=== PATIENT | female | born 1935 | race Caucasian/White ===

== ENCOUNTER 2024-01-16 11:46 | Emergency (ER) | payer MEDICARE, MEDICAID, SELFPAY ==
[2024-01-16 11:49] VITALS: BP 130/56; PULSE 92; RESP 19; TEMP 36.3; O2SAT 95
[2024-01-16 12:26] VITALS: PULSE 65; RESP 16; O2SAT 96; BMI 21.1
--- NOTE | 2024-01-16 12:28 | EKG_ITS ---
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
--- NOTE | 2024-01-16 12:30 | PD.EDAMS ---
Altered Mental Status RME/HPI General Chief Complaint: Altered Mental Status Stated Complaint: AMS Time Seen by Provider: 01/16/24 12:07 Arrival date/time: 01/16/24 11:46 Limitations: no limitations RME / HPI RME / HPI narrative: 88 year old female presents to the ED SLIME from [facility] for altered mental status today. Per medics, NH staff reported patient is confused at baseline, however noted to have increased confusion today. While in the ED patient is difficult to understand, no further history obtainable. Related Data Previous Rx's ?Medication ?Instructions ?Recorded nitrofurantoin 100 mg PO BID UTI 7 days #14 caps 01/16/24 monohydrate/macrocrystals 100 mg capsule (Macrobid) nitrofurantoin 100 mg PO Q12H 7 days #14 caps 01/16/24 monohydrate/macrocrystals 100 mg capsule (Macrobid) Review of Systems Review of Systems Narrative Review of Systems: ROS initially unobtainable, patients mandible was help in extreme extension and speech was difficult to understand. Past Medical History Social History SMOKING STATUS: Unknown if ever smoked ED Exam General Limitations: Present no limitations General appearance: Present alert Head Head exam: Present atraumatic and normocephalic Eye Eye exam: Present normal appearance, PERRL and EOMI ENT ENT exam: Present mucous membranes moist and other (Mandible held in extreme extension) Neck Neck exam: Present normal inspection, full ROM and trachea midline Chest Chest inspection: Present normal inspection and symmetric chest wall rise Respiratory Respiratory exam: Present normal lung sounds bilaterally Cardiovascular Cardiovascular exam: Present regular rate, normal rhythm and normal heart sounds Abdominal Exam Abdominal exam: Present soft and normal bowel sounds Extremities Exam Extremities exam: Present normal inspection and full ROM Back Exam Back exam: Present normal inspection and full ROM Neurological Exam Neurological exam: Present alert, oriented X3 and CN II-XII intact Psychiatric Psychiatric exam: Present normal affect and normal mood Skin Skin exam: Present warm, dry, intact and normal color Course Quality Measures none Orders Category Date Time Status Bedside Blood Glucose NOW Care 01/16/24 12:28 Completed Marketing Services Coordinator NOW Care 01/16/24 12:29 Completed Continuous Pulse Oximetry NOW Care 01/16/24 12:28 Completed EKG (ED ONLY) *Do not use* NOW Care 01/16/24 12:29 Completed Insert IV NOW Care 01/16/24 12:29 Completed Miscellaneous Nursing Order NOW Care 01/16/24 14:16 Completed Urinary Catheter NOW Care 01/16/24 12:[address] head/brain wo con Stat Exams 01/16/24 12:30 Completed EKG (ED Only) Stat Exams 01/16/24 12:28 Draft XR chest 1V portable Stat Exams 01/16/24 12:31 Completed XR mandible <4V Stat Exams 01/16/24 14:20 Completed Ammonia Stat Lab 01/16/24 12:50 Completed CBC Stat Lab 01/16/24 12:50 Completed Comprehensive Metabolic Panel Stat Lab 01/16/24 12:50 Completed Free T4 (Free Thyroxine) Stat Lab 01/16/24 12:50 Completed Magnesium Stat Lab 01/16/24 12:50 Completed Thyroid Stimulating Hormone Stat Lab 01/16/24 12:50 Completed Troponin I Stat Lab 01/16/24 12:50 Completed Troponin I Stat Lab 01/16/24 14:40 Completed Urinalysis Stat Lab 01/16/24 14:35 Completed Sodium Chloride 0.9% 1000 ml [Ns] 1,000 ml Med 01/16/24 14:23 Discontinued IV 999 mls/hr Vital Signs Vital signs: Vital Signs Temperature 97.4 F 01/16/24 11:49 Pulse Rate 92 01/16/24 11:49 Respiratory Rate 19 01/16/24 11:49 Blood Pressure 130/56 L 01/16/24 11:49 Pulse Oximetry (%) 95 01/16/24 11:49 Oxygen Delivery Method Nasal Cannula 01/16/24 11:49 Oxygen Flow Rate 6 01/16/24 11:49 Pulse ox is 95% on 6L nasal cannula which is adequate. Altered Mental Status MDM Narrative MDM Narrative:: Celestina Padilla am scribing for and in the presence of Dr. Moreno. Patient data External records reviewed:: EMS form and Snf records (I reviewed pmhx and medications from [place] txfer packet ) Clinical information provided by:: EMS Social determinants that could affect healthcare access:: housing ([place] ) Patient has the following chronic illnesses:: Dementia How is presenting disease/condition affected by chronic disease/condition?: exacerbated by Evaluation data The following diagnostics were reviewed and interpreted by me:: lab results, radiology exam(s) and EKG tracing(s) (NSR, rate 65, normal axis, no ectopy) Lab and/or radiology exams considered but not ordered:: None Interpretation Summary: Ordering Physician: Cosmo Moreno MD Date of Service: 01/16/24 Procedure(s): CT head/brain wo con Accession Number(s): [id number] cc: Balwinder Graham MD; Cosmo Moreno MD~ Examination: CT brain head without contrast. 2-D sagittal coronal reconstructions Date and time of exam:January 16, 2024 1310 hrs. Indications: Onset altered mental status today CTDI: vol (mGy):43.7 DLP: (mGycm):863 Technique: Multiple CT axial sections of the brain have been obtained, 5 mm slice thickness. Contrast has not been administered. 2-D sagittal, coronal reconstructions have been obtained Low dose protocols were performed. One or more of the following dose reduction techniques were used; automated exposure control, adjustment of the mA and/or KV according to patient size, use of iterative reconstruction technique. Findings: No significant ventricular enlargement. Intra-axial or extra-axial hemorrhage density is not seen. No mass effect or midline shift Basal cisterns are not remarkable. Fourth ventricle is midline. Cranial vault intact. Impression: Negative for acute hemorrhage, mass effect or midline shift Advise clinical correlation and follow-up accordingly Dictated By: Balwinder Graham MD Signed By: <Electronically signed by Balwinder Graham MD in OV> 01/16/24 1339 Ordering Physician: Cosmo Moreno MD Date of Service: 01/16/24 Procedure(s): XR chest 1V portable Accession Number(s): [id number] cc: Balwinder Graham MD; Cosmo Moreno MD~ Examination: AP chest single view Technique: AP portable semiupright chest single view Exam date and time: January 26, 2024 1238 hrs. Indications: Altered mental status today. Findings: Normal heart size No aspiration pneumonia The osseous structures are demineralized Impression: No aspiration pneumonia Dictated By: Balwinder Graham MD Signed By: <Electronically signed by Balwinder Graham MD in OV> 01/16/24 1352 Ordering Physician: Cosmo Moreno MD Date of Service: 01/16/24 Procedure(s): XR mandible <4V Accession Number(s): [id number] cc: Balwinder Graham MD; Cosmo Moreno MD~ Examination: Mandible series 4 views Exam date and time: January 16, 2024 1455 hrs. Technique: Melvin Henry sagittal oblique right and left mandible examination, drop pain today Findings: Suspicious for dislocation of the mandibular condyles The sagittal oblique films are not optimal No mandibular fracture depicted Impression: Recommend CT maxillofacial study follow-up to exclude dislocation of the mandibular condyles Dictated By: Balwinder Graham MD Signed By: <Electronically signed by Balwinder Graham MD in OV> 01/16/24 1552 Medications / Prescriptions Medications or Prescriptions considered but not ordered:: None Medication administrations:: Medication Administration History Discontinued Medications Sodium Chloride (Ns) 1,000 mls @ 999 mls/hr IV .Q1H1M ONE Stop: 01/16/24 15:23 Last Infusion: 01/16/24 16:46 Dose: Infused Documented By: Admin: 01/16/24 15:43 Dose: 999 mls/hr Documented By: See above Consultations Consultation(s) initiated? (list below): No Diagnosis Most likely diagnosis given after review of the tests above:: Closed reduction of mandible UTI Admission Indicated Admission indicated?: not indicated Admission Request Was there a request for admission?: No Disposition Plan Disposition Plan: Discharge Discharge Attestation Discharge Attestation: The patient and all family members were given an opportunity to ask questions and understood the discharge instructions. Discharge instructions specifically effects, indications for sooner follow up or return to the emergency department, and the expected course of current diagnosis. Patient condition: Stable Discharge Plan Plan Patient Disposition: HOME (Self Care) Prescriptions/Referrals Prescriptions/Med Rec: New nitrofurantoin monohyd/m-cryst [Macrobid] 100 mg capsule 100 mg PO BID 7 Days Qty: 14 0RF Rx Instructions: must administer with a meal/food nitrofurantoin monohyd/m-cryst [Macrobid] 100 mg capsule 100 mg PO Q12H 7 Days Qty: 14 0RF Rx Instructions: must administer with a meal/food Problem List Clinical Impression: Closed dislocation of mandible, Urinary tract infection Patient/Caregiver Discharge Instructions Education Materials: ED Jaw Dislocation Additional Instructions: Return to the emergency department for any worsening or any further medical problems Please follow-up with your primary care doctor within the next several days Today you had a mandibular dislocation. That means your jawbone was dislocated. We reduced that and now it is in its normal position. If you experience any other problems please return to the ER Print Language: Romanian Stand Alone Forms: Christiane Award Info., Patient Portal Info Letter
[2024-01-16 13:09] LABS: Basophils % (Auto) 0 % (0-2.5); Eosinophils % (Auto) 0 % (0-10); Hemoglobin 11.6 g/dL (12.0-16.0); Immature Granulocytes % (Auto) 0 % (0-0); Immature Granulocytes Auto 0.04 Thou/mm3 (0.00-0.00); Lymphocytes % (Auto) 10 % (10-50); Mean Corpuscular HGB Conc 34.1 g/dl (31.0-37.0); Mean Corpuscular Hemoglobin 31.4 pg (25.0-35.0); Mean Corpuscular Volume 92 fL (80-100); Monocytes # (Auto) 0.7 Thou/mm3 (0.0-0.8); Monocytes % (Auto) 7 % (0-12); Neutrophils # (Auto) 8.1 Thou/mm3 (1.8-7.7); Neutrophils % (Auto) 82 % (37-80); Nucleated Red Blood Cell % 0 /100 WBC (0); Platelet Count 299 Thou/mm3 (140-440); RDW Standard Deviation 41.6 fL (36.4-46.3); White Blood Count 9.9 Thou/mm3 (3.6-11.0)
[2024-01-16 13:19] LABS: Ammonia < 10 uMol/L (11-32)
[2024-01-16 13:29] LABS: Alanine Aminotransferase 9 U/L (10-49); Albumin, Serum 4.2 gm/dL (3.4-4.8); Albumin/Globulin Ratio 1.6 (1.2-2.2); Alkaline Phosphatase 109 U/L (46-116); Anion Gap 7 (7-16); Aspartate Amino Transferase 13 U/L (0-34); BUN/Creatinine Ratio 31 Ratio (12-20); Bilirubin,Total 0.5 mg/dL (0.3-1.2); Blood Urea Nitrogen 25 mg/dL (9-23); Calcium 9.5 mg/dL (8.3-10.6); Calcium (Corrected) 9.5 mg/dL (8.5-10.1); Carbon Dioxide 27.8 mMol/L (20.0-31.0); Chloride 96 mMol/L (98-107); Creatinine (Component) 0.8 mg/dL (0.6-1.3); Estimated Creatinine Clearance 43.6 mL/min (>60); Free T4 (Free Thyroxine) 1.25 ng/dL (0.89-1.76); Globulin 2.6 gm/dL (2.3-3.5); Glucose 84 mg/dL (74-106); Magnesium 2.1 mg/dL (1.6-2.6); Osmolality,Calculated 266 (275-295); Potassium 4.2 mMol/L (3.4-5.1); Sodium 131 mMol/L (136-145); Thyroid Stimulating Hormone 3.88 uIU/mL (0.55-4.78); Total Protein 6.8 gm/dL (5.7-8.2); Troponin I < 0.020 ng/mL (0.0-0.045); eGFR > 60 See Note
--- NOTE | 2024-01-16 14:20 | XR_ITS ---
Examination: Mandible series 4 views Exam date and time: January 16, 2024 1455 hrs. Technique: Melvin Henry sagittal oblique right and left mandible examination, drop pain today Findings: Suspicious for dislocation of the mandibular condyles The sagittal oblique films are not optimal No mandibular fracture depicted Impression: Recommend CT maxillofacial study follow-up to exclude dislocation of the mandibular condyles
[2024-01-16 14:41] LABS: Collection Type, Urine Catheter
[2024-01-16 14:42] VITALS: BP 146/60; PULSE 72; RESP 20; TEMP 36.7; O2SAT 99
[2024-01-16 15:17] LABS: Troponin I < 0.020 ng/mL (0.0-0.045)
[2024-01-16 15:30] LABS: Bilirubin,Urine Negative (Negative); Blood,Urine Negative (Negative); Clarity,Urine Clear (Clear/Hazy); Color,Urine Yellow (Lt Yel-Yel); Glucose, Urine Negative (Negative); Ketones,Urine Negative (Negative); Leukocyte Esterase,Urine Positive (Negative); Nitrite,Urine Negative (Negative); Protein,Urine Trace (Neg - Trace); RBC,Urine 1 /hpf (0-3); Specific Gravity,Urine 1.016 (1.001-1.035); Squamous Epithelial Cell,Urine < 1 /hpf (0-5); Urobilinogen,Urine Negative mg/dL (0.0-1.0); WBC,Urine 54 /hpf (0-5)
[2024-01-16] MEDS: SODIUM CHLORIDE 0.9% 1000 ML 1,000 ML 999 ML IV (15:43)
[2024-01-16 16:38] VITALS: BP 158/64; PULSE 74; RESP 15; TEMP 36.5; O2SAT 100
--- NOTE | 2024-01-16 18:17 | PC.CC ---
ED Remote Sensing Technician contacted [facility] in order to begin transportation request, provided transport #[id number]. PCS form and facesheet faxed to [facility]. [facility] dispatch contacted and trip was created. [facility] waiting for [facility] confirmation and will contact fha underwriter with ETA.
[2024-01-16 18:42] VITALS: BP 142/70; PULSE 70; RESP 20; TEMP 36.9; O2SAT 100
[2024-01-16 22:26] VITALS: BP 138/77; PULSE 78; RESP 16; TEMP 36.8; O2SAT 100
== END 2024-01-16 22:32 | disposition home or self-care (01) ==
PROVIDERS: Emergency Medicine; Emergency Provider Emergency Medicine; PCP Hospitalist
DX: N39.0 Urinary tract infection, site not specified (principal); S03.00XA Dislocation of jaw, unspecified side, initial encounter; X58.XXXA Exposure to other specified factors, initial encounter
CPT/HCPCS: 36415; 70100; 70450; 71045; 80053; 81001; 82140; 83735; 84439; 84443; 84484; 85025; 93005; 96360; 99284; J7030

== ENCOUNTER 2024-04-20 11:36 | Emergency (ER) | payer MEDICAID, SELFPAY ==
[2024-04-20] VITALS (8 sets, daily range): BP systolic 142–180; BP diastolic 59–94; PULSE 61–90; RESP 12–18; TEMP 36.3–37.1; O2SAT 97–100; BMI 20.3
--- NOTE | 2024-04-20 12:05 | XR_ITS ---
Examination: Mandible series 4 views Technique: AP, Charles, right and left sagittal oblique mandible series 4 views Exam date and time: April 20, 2024 at 1249 hrs. Indications: Jaundice today Findings: Mandibular condyle dislocation No fracture Impression: Recommend CT maxillofacial study follow-up to confirm bilateral mandibular condyle dislocation
--- NOTE | 2024-04-20 12:08 | PD.EDADULT ---
ED General RME/HPI General Chief complaint: General Adult/Misc Complain Stated complaint: LOCKJAW Time Seen by Provider: 04/20/24 11:49 Arrival date/time: 04/20/24 11:36 This is an 88-year-old female that is brought in by ambulance with complaints of locked jaw. Per EMS this has happened before in the past. Patient comes from [facility]. Patient has a history of dementia, GERD, anxiety, depression. No other complaints. Patient not able to close her mouth all the way. Related Data Allergies Allergy/AdvReac Type Severity Reaction Status Date / Time No Known Allergies Allergy Verified 04/20/24 15:18 Review of Systems Review of Systems Systems Reviewed: All systems reviewed, normal except as documented Past Medical History Social History SMOKING STATUS: Unknown if ever smoked ED Exam General General appearance: Present alert and in no apparent distress Head Head exam: Present atraumatic Eye Eye exam: Present normal appearance, PERRL and EOMI ENT ENT exam: Present mucous membranes moist and other (not able to close mouth, jaw dislocation both sides ) Neck Neck exam: Present normal inspection, full ROM and trachea midline Chest Chest inspection: Present normal inspection and symmetric chest wall rise Respiratory Respiratory exam: Present normal lung sounds bilaterally Cardiovascular Cardiovascular exam: Present regular rate, normal rhythm and normal heart sounds Abdominal Exam Abdominal exam: Present soft Extremities Exam Extremities exam: Present normal inspection and full ROM Back Exam Back exam: Present normal inspection and full ROM Neurological Exam Neurological exam: Present alert and other (Awake cooperative) Psychiatric Psychiatric exam: Present normal affect and normal mood Skin Skin exam: Present warm, dry and intact Course Quality Measures none Orders Category Date Time Status Physical Medicine Specialist Q4H START 00 Care 04/20/24 15:22 Completed Continuous Pulse Oximetry NOW Care 04/20/24 15:22 Completed Insert IV STAT Care 04/20/24 15:21 Completed XR mandible min 4V Stat Exams 04/20/24 12:05 Completed XR mandible min 4V Stat Exams 04/20/24 16:26 Completed Midazolam Inj [Versed Inj] Med 04/20/24 15:21 Discontinued 1 mg IV X1 ONE fentaNYL INJ [Sublimaze Inj] Med 04/20/24 16:04 Discontinued 25 mcg IVP X1 ONE Vital Signs Vital signs: Vital Signs Temperature 97.9 F 04/20/24 13:08 Pulse Rate 69 04/20/24 13:08 Respiratory Rate 16 04/20/24 13:08 Blood Pressure 156/63 H 04/20/24 13:08 Pulse Oximetry (%) 99 04/20/24 13:08 Oxygen Delivery Method Room Air 04/20/24 13:08 Procedures -ED Jaw Reduction Time Out Performed: Yes Pre-Treatment Medications Used: other (Versed 1 mg) Technique used: downward anterior traction Reduction successful: Yes Patient Tolerated Procedure: well and no complications Complications: none MDM Patient data External records reviewed:: [facility] previous records Clinical information provided by:: patient Social determinants that could affect healthcare access:: none Patient has the following chronic illnesses:: see hpi How is presenting disease/condition affected by chronic disease/condition?: uneffected by Evaluation data The following diagnostics were reviewed and interpreted by me:: radiology exam(s) Lab and/or radiology exams considered but not ordered:: none Interpretation Summary: see note Medications Medications considered but not ordered:: none Medication administrations:: Medication Administration History Discontinued Medications Fentanyl Citrate (Fentanyl Cit Inj 50 Mcg/Ml Amp 2ml) 25 mcg IVP X1 ONE Stop: 04/20/24 16:05 Last Admin: 04/20/24 16:30 Dose: Not Given Documented By: YUMIKO Non-Admin Reason: Discontinued Midazolam HCl (Midazolam Inj 1 Mg/Ml Vial 2 Ml) 1 mg IV X1 ONE Stop: 04/20/24 15:22 Last Admin: 04/20/24 16:00 Dose: 1 mg Documented By: TAURUS Comments: via 20 g left ac over 2 min. patient was not given fentanyl because it was not needed Consultations Consultation(s) initiated? (list below): No Diagnosis Differential Diagnosis ED Complaint MDM: Jaw dislocation, jaw breakage, TMJ Most likely diagnosis given after review of the tests above:: jaw dislocation status post reduction. Admission Indicated Admission indicated?: not indicated Explain why admission is indicated or not indicated:: Job reduced and patient is job back to baseline. Patient able to open and close mouth. Admission Request Was there a request for admission?: No Disposition Plan Disposition Plan: Discharge Discharge Attestation Discharge Attestation: The patient and all family members were given an opportunity to ask questions and understood the discharge instructions. Discharge instructions specifically effects, indications for sooner follow up or return to the emergency department, and the expected course of current diagnosis. Patient condition: Stable Medical Decision Making MDM Narrative MDM Narrative: INitial mandible film: Findings: Mandibular condyle dislocation No fracture Impression: Recommend CT maxillofacial study follow-up to confirm bilateral mandibular condyle dislocation amelia call [phone], pt son. I let him know patient was in the emergency room and jaw dislocated. I asked permission for possble conscious sedation if needed. I told him that we would first try Versed IV to see if that will relax her enough to be able to reduce jaw. Patient given 1 mg of Versed. Patient was still awake and cooperative. We were able to successfully reduce jaw. Postprocedure x-ray done and it appears to be in place. Will send patient back to correction. Instructions to come back to the emergency room if symptoms change or worsen. s/p reduction mandible film: Findings: Successful reduction shoulder dislocation No fracture Impression: Successful reduction jaw dislocation Will send patient back to correction. Patient awake and alert and tolerated procedure well. Patient is to follow up with primary provider in 1-2 days Differential Diagnosis Differential Diagnosis: Jaw dislocation, jaw breakage, TMJ Discharge Plan Plan Patient Disposition: Xfer Skilled Nsg Fac (SNF) Patient condition on transfer: Stable Prescriptions/Referrals Referrals: Sandrita Gabriel ENGLISH PROFESSOR [Primary Care Provider] - In 1 week Problem List Clinical Impression: Dislocation, jaw Patient/Caregiver Discharge Instructions Discharge Activity: resume usual activities Education Materials: ED Jaw Dislocation Additional Instructions: Follow up with primary provider in 1-2 days. Come back to ED if symptoms change or worsen Print Language: Portuguese Stand Alone Forms: Christiane Award Info., Patient Portal Info Letter PA/MEDICAL CLINIC MANAGER Supervising Physician PA/THANH Supervising Physician: irene
--- NOTE | 2024-04-20 15:16 | PC.NURSE ---
SPOKE TO KIET COLLINS FROM [facility] AND GAVE UPDATE REGARDING PT'S POC. KIET OCLLINS GAVE THE # [phone] FOR ANY FURTHER UPDATES REGARDING PT'S POC.
[2024-04-20] MEDS: MIDAZOLAM INJ 1 MG/ML VIAL 2 ML IV (16:00)
--- NOTE | 2024-04-20 16:05 | PC.NURSE ---
patient's brief changed, linen and brief soiled of urine, clean dry brief applied and linen changed, patient placed in POC, call light within reach.
--- NOTE | 2024-04-20 16:10 | PC.NURSE ---
KESHAV Bryson NP AND DR. DISLA AT BEDSIDE MANUALLY REDUCING PT'S MANDIBLE WITHOUT CONSCIOUS SEDATION. PT RECEIVED VERSED PRIOR TO REDUCTION.
--- NOTE | 2024-04-20 16:26 | XR_ITS ---
Examination: Mandible 5 views Technique: Carl Charles, lateral, bilateral sagittal oblique total 5 views Exam date and time: 025 at 1645 hrs. Indications: Jaw dislocation post reduction Findings: Successful reduction shoulder dislocation No fracture Impression: Successful reduction jaw dislocation
--- NOTE | 2024-04-20 18:56 | PC.NURSE ---
spoke to Ayesha COLLINS from [facility] for SBAR report and made aware that pt is ready for discharged; transportation back to [facility] to be done by [facility] ED staff.
--- NOTE | 2024-04-20 19:03 | PC.NURSE ---
spoke to Christiano Kike, pt's son, and asked in able to picking supervisor pt to be transported back to [facility]. Per Christiano, will be able to picking supervisor my mom in about 15 minutes.
== END 2024-04-20 20:39 | disposition skilled nursing facility (03) ==
PROVIDERS: Emergency Provider Emergency Medicine; PCP Nurse Practitioner Gerontology
DX: S03.03XA Dislocation of jaw, bilateral, initial encounter (principal); X58.XXXA Exposure to other specified factors, initial encounter
CPT/HCPCS: 21480; 70110; 99284; J2250

== ENCOUNTER 2024-06-20 20:43 | Emergency (ER) | payer MEDICAID, SELFPAY ==
--- NOTE | 2024-06-20 20:53 | PD.EDFALL ---
ED Fall Injury RME/HPI General Chief Complaint: Fall Stated Complaint: FALL Time Seen by Provider: 06/20/24 21:09 Arrival date/time: 06/20/24 20:43 RME / HPI RME / HPI Narrative: This section includes all my notes and documentations, including HPI, PE, and ED course. Noah Lawson MD HPI: 88 y/o female with Hx of Dementia, muscle wasting and atrophy SLIME from [facility] presents to ED c/o falling and landing on her forehead x approximately 1 hour ago. Health And Safety Manager was attempting to help patient back into bed from the restroom when patient fell forward. Per EMS, patient given Ativan SCREEN REPAIRER CRUSHER. No other complaints. ROS: All negative except as documented in HPI. Physical Exam: General: Alert and oriented. Eyes: Conjunctivae and lids clear. ENT: No nasal congestion. Neck: Supple. Lungs: No respiratory distress. Skin: Warm and dry. Neuro: Alert and oriented X 3. Physical Exam: General: Alert and oriented. No acute distress when remaining still. Eyes: Conjunctivae and lids clear. ENT: No nasal congestion. Neck: Supple. Heart: RRR. Lungs: No respiratory distress. Good air movement. No rhonchi, wheezing, rales. Abdomen: Soft and nontender. Normal bowel sounds. No distension. No rebound or guarding. Back: No CVA tenderness. Skin: Warm and dry. Neuro: Alert and oriented X 3. Physical Exam: General: Alert and oriented. No acute distress. Eyes: Conjunctivae and lids clear. EOMI. PERRL. ENT: No nasal congestion. Pharynx normal. Tympanic membrane normal bilaterally. Neck: Supple. No lymphadenopathy. No JVD. Heart: RRR. Lungs: No respiratory distress. Good air movement. No rhonchi, wheezing, rales. Chest: No tenderness. Abdomen: Soft and nontender. Normal bowel sounds. No distension. No rebound or guarding. Back: No CVA tenderness. Legs: No clubbing, cyanosis, edema. Skin: Warm and dry. Neuro: Alert and oriented X 3. Cranial Nerves II-XII grossly intact. No peripheral motor deficits. Musculoskeletal: All major joints and bones are not tender with no limited ROM. I reviewed EMS and half-way notes. I reviewed all diagnostic test results. My review of the C-spine CT w/o contrast report is My review of the Head/Brain CT w/o contrast report is At this point, diagnoses include Treatment here included Lidocaine and suture repair. Significant improvement Not yet done: I discussed the case with our hospitalist. About the presentation and exam and diagnostics and treatments here. And need of further care in the hospital. Will accept the patient. Not yet done: Based on my best medical judgment, made decision no further evaluation or treatment indicated at this time. Patient understands and agrees to the discharge instructions customized and printed, see below. Noah Lawson MD Related Data Allergies Allergy/AdvReac Type Severity Reaction Status Date / Time No Known Allergies Allergy Verified 04/20/24 15:18 Review of Systems Review of Systems ROS Unobtainable: unobtainable due to medical condition (Dementia) Past Medical History Past Medical History NEUROLOGIC: Positive Dementia GASTROINTESTINAL: Positive Gastroesophageal Reflux Disease MUSCULOSKELETAL: Positive Musculoskeletal Disorders (MUSCLE WASTING AND ATROPHY) and Arthritis HEMATOLOGIC: Positive Anemia PSYCHO/SOCIAL: Positive Anxiety Surgical History SURGICAL: Positive Joint Replacement ED Exam Narrative Physical exam: Refer to HPI above Course Quality Measures none Orders Category Date Time Status Set Up Suture Tray STAT Care 06/20/24 21:[address] cervical spine wo con Stat Exams 06/20/24 21:[address] head/brain wo con Stat Exams 06/20/24 21:10 Ordered Lidocaine 1% 20 ml [Xylocaine 1% 20 ML] Med 06/20/24 21:10 Discontinued 20 ml INFL X1 ONE Vital Signs Vital signs: Vital Signs Temperature 98.0 F 06/20/24 21:10 Pulse Rate 76 06/20/24 21:10 Respiratory Rate 18 06/20/24 21:10 Blood Pressure 119/65 06/20/24 21:10 Pulse Oximetry (%) 100 06/20/24 21:10 Oxygen Delivery Method Room Air 06/20/24 21:10 Fall MDM Narrative MDM Narrative:: Scribe Attestation: Randy, Cait Harmon, am scribing for and in the presence of Dr. Lawson. Provider Notation: Although this document has been carefully reviewed, there may still be some phonetic and other typographical errors.? These errors are purely grammatical due to imperfections in the software program and should not be construed in any way to? compromise the substance of the patient's medical care during this visit. 88 y/o female with Hx of Dementia, muscle wasting and atrophy SLIME from [facility] presents to ED c/o falling and landing on her forehead x approximately 1 hour ago. Patient data External records reviewed:: [facility] previous records (Reviewed prior Ed records from 04/20/24. Patient was last seen for Dislocation, jaw.), EMS form and [facility] records Clinical information provided by:: EMS Social determinants that could affect healthcare access:: mental health (Dementia) Patient has the following chronic illnesses:: Dementia, Gastroesophageal Reflux Disease, Muscle wasing and atrophy, Arthritis, Anemia, Anxiety. How is presenting disease/condition affected by chronic disease/condition?: exacerbated by Evaluation data The following diagnostics were reviewed and interpreted by me:: radiology exam(s) Lab and/or radiology exams considered but not ordered:: None Interpretation Summary: I reviewed all diagnostic test results. My review of the C-spine CT w/o contrast report is My review of the Head/Brain CT w/o contrast report is Medications / Prescriptions Medications or Prescriptions considered but not ordered:: None Medication administrations:: Medication Administration History Discontinued Medications Lidocaine HCl (Lidocaine Hcl 1% 20 Ml Vial) 20 ml INFL X1 ONE Stop: 06/20/24 21:11 Lidocaine Diagnosis Fall Differential Diagnosis: syncope, concussion without loss of consciousness and other (Laceration, Contusion, Abrasion.) Discharge Plan Prescriptions/Referrals Referrals: No Primary/Family,Physician [Primary Care Provider] - In 1 week Patient/Caregiver Discharge Instructions Print Language: Swedish
[2024-06-20 21:10] VITALS: BP 119/65; PULSE 76; RESP 18; TEMP 36.7; O2SAT 100
--- NOTE | 2024-06-20 21:10 | XR_ITS ---
Examination: CT brain head without contrast. 2-D sagittal coronal reconstructions Date and time of exam:June 20, 2024 1048 hours INDICATIONS: Ground-level fall with injury to the head today, head pain CTDI: vol (mGy):46.8 DLP: (mGycm):1 Technique: Multiple CT axial sections of the brain have been obtained, 5 mm slice thickness. Contrast has not been administered. 2-D sagittal, coronal reconstructions have been obtained Low dose protocols were performed. One or more of the following dose reduction techniques were used; automated exposure control, adjustment of the mA and/or KV according to patient size, use of iterative reconstruction technique. Findings: No significant ventricular enlargement. Intra-axial or extra-axial hemorrhage density is not seen. No mass effect or midline shift Basal cisterns are not remarkable. Fourth ventricle is midline. Cranial vault intact. Numerous 1 mm opacities in the frontal scalp soft tissue, for instance axial image 26, clinical correlation advised Impression: Negative for acute hemorrhage, mass effect or midline shift
--- NOTE | 2024-06-20 21:10 | XR_ITS ---
Examination: CT cervical spine without contrast 2-D sagittal reconstructions 2-D coronal reconstructions 3-D reconstructions. Exam date and time:June 20, 2024 1048 hours INDICATIONS: Ground-level fall today with injury the neck, neck pain CTDI:vol (mGy) 6.90 DLP: (mGycm) 136 Technique: Multiple 2 mm axial sections of the cervical spine have been obtained. The coronal and sagittal reconstructions have been obtained. 3-D reconstructions have been obtained. Low dose protocols were performed. One or more of the following dose reduction techniques were used; automated exposure control, adjustment of the mA and/or KV according to patient size, use of iterative reconstruction technique. Findings: Axial sections demonstrate intact base of the skull. C1 exhibit satisfactory relationship to the odontoid. No acute cervical vertebral body fracture seen. Alignment posterior spinous processes satisfactory. Impression: No acute cervical fracture.
--- NOTE | 2024-06-20 21:11 | PD.EDADULT ---
ED General RME/HPI General Chief complaint: Fall Stated complaint: FALL Time Seen by Provider: 06/20/24 21:09 Arrival date/time: 06/20/24 20:43 CC: Ground-level fall with forehead laceration HPI patient presents to the ER via EMS after patient being was escorted to bed at [facility] care facility. Apparently in spite of being assisted and prior to falling the patient was given lorazepam for her sleeping dose. Patient promptly fell. GCS of 14 as a baseline. Patient is now somewhat drowsy. Reports stable vital signs and route. Patient asleep but easily arousable. Patient reports no pain. Related Data Allergies Allergy/AdvReac Type Severity Reaction Status Date / Time No Known Allergies Allergy Verified 04/20/24 15:18 Review of Systems Review of Systems Narrative Review of Systems: GEN: No fever, no chills, no weight loss EYES: No discharge, no visual changes, no pain HEENT: No ear pain, no congestion, no sore throat PULM: No shortness of breath, no cough, no congestion CV: No chest pain, no dyspnea on exertion, no palpitations GI: No nausea, no vomiting, no diarrhea, no pain, no constipation : No frequency, no urgency, no dysuria MUSC/SKEL: No joint pain, no back pain SKIN: No rash PSYCH: No hallucinations, no depression HEME/LYMPH: No easy bleeding or bruising tendencies NEURO: No weakness, + headache Past Medical History Past Medical History NEUROLOGIC: Positive Dementia CARDIAC: Negative Congestive Heart Failure RESPIRATORY: Negative Chronic Obstructive Pulmonary Disease (COPD) GASTROINTESTINAL: Positive Gastroesophageal Reflux Disease GENITOURINARY: Negative Renal Disease MUSCULOSKELETAL: Positive Musculoskeletal Disorders (MUSCLE WASTING AND ATROPHY) and Arthritis ENDOCRINE: Negative Diabetes Mellitus Type 1 or Diabetes Mellitus Type 2 HEMATOLOGIC: Positive Anemia PSYCHO/SOCIAL: Positive Anxiety Surgical History SURGICAL: Positive Joint Replacement Social History SMOKING STATUS: Unknown if ever smoked ED Exam Narrative Physical exam: [General: Frail, deconditioned but not in any acute distress Head; chevron shaped laceration full-thickness to the center forehead below the hairline. No step-off hematoma depression or other abrasion HEENT: Eyes: Pupils are PERRLA EOMs are intact. Mouth pink dry membranes uvula is midline swallow symmetrical nose no rhinorrhea or epistaxis. All the subsystems of HEENT are within acceptable limits Neck is supple nontender Chest equal chest rise nontender to palpation Respiratory: Clear to auscultation no wheezes crackles or rubs CV: Rate rhythm is regular no murmurs rubs or clicks Abdomen is flat soft nontender no masses positive bowel sounds all 4 quadrants Back: No CVA tenderness no spinous process tenderness from cervical spine thoracic and lumbar spine Skin: Chevron laceration full-thickness to center forehead below the hairline. See procedure note. Otherwise skin is intact no petechiae rash induration ulceration or crepitus Extremities: Moving all extremity against resistance cap refill less than 2 seconds neurosensory intact Neuro: Awake alert oriented x1, self, Glascow coma 15 no focal deficits] Course Quality Measures none Orders Category Date Time Status Set Up Suture Tray STAT Care 06/20/24 21:[address] cervical spine wo con Stat Exams 06/20/24 21:[address] head/brain wo con Stat Exams 06/20/24 21:10 Completed Lidocaine 1% 20 ml [Xylocaine 1% 20 ML] Med 06/20/24 21:10 Discontinued 20 ml INFL X1 ONE Vital Signs Vital signs: Vital Signs Temperature 98.0 F 06/20/24 21:10 Pulse Rate 76 06/20/24 21:10 Respiratory Rate 18 06/20/24 21:10 Blood Pressure 119/65 06/20/24 21:10 Pulse Oximetry (%) 100 06/20/24 21:10 Oxygen Delivery Method Room Air 06/20/24 21:10 Procedures -ED Procedure Comment Laceration repair, lidocaine, 1% 3 mL injected to local site. Site was cleaned and probed no foreign body was found site was interrupted with 3 interrupted sutures of 4-0 Ethilon with good approximation without complication patient tolerated the procedure well. Discharge Plan Plan Patient Disposition: HOME (Self Care) Patient condition on transfer: Stable Prescriptions/Referrals Referrals: No Primary/Family,Physician [Primary Care Provider] - In 1 week Problem List Clinical Impression: Fall from ground level, Forehead laceration Patient/Caregiver Discharge Instructions Education Materials: ED Fall with Uncertain Cause, ED Laceration, Face: Stitches or Tape Additional Instructions: Discharge instructions from Dr. Lawson:? -- Your laceration was repaired with 3 stitches. -- Keep the current dressing intact for 24 hours. -- After 24 hours, change the dressing once daily. -- First remove the dressing gently.? If it does not come off easily, run water through it until it comes off easily. -- Then gently wash with soap and water. -- After completely drying, apply antibiotic ointment and new dressing. -- See your doctor or return here in 7 days for suture removal.? Total of 3 stitches. -- Seek immediate medical care with fever, spreading redness from the wound, or with any concerns. Print Language: Croatian Stand Alone Forms: Christiane Award Info., Patient Portal Info Letter PA/PHOTOENGRAVING PROOFER Supervising Physician PA/PHOTOENGRAVING PROOFER Supervising Physician: Marvel Odom ENP, MD Attestation MD Attestation Discharge instructions from Dr. Lawson:? -- Your laceration was repaired with 3 stitches. -- Keep the current dressing intact for 24 hours. -- After 24 hours, change the dressing once daily. -- First remove the dressing gently.? If it does not come off easily, run water through it until it comes off easily. -- Then gently wash with soap and water. -- After completely drying, apply antibiotic ointment and new dressing. -- See your doctor or return here in 7 days for suture removal.? Total of 3 stitches. -- Seek immediate medical care with fever, spreading redness from the wound, or with any concerns. Noah Lawson MD MDM Medication Administration(s) Medication Administration History Discontinued Medications Lidocaine HCl (Lidocaine Hcl 1% 20 Ml Vial) 20 ml INFL X1 ONE Stop: 06/20/24 21:11
[2024-06-20 21:22] VITALS: PULSE 74; O2SAT 91; BMI 22.3
[2024-06-20 22:13] VITALS: BP 142/71; PULSE 71; RESP 19; TEMP 36.6; O2SAT 100
--- NOTE | 2024-06-20 23:26 | PD.EDADDENDU ---
Emergency Room Addendum <Cait Harmon - Last Filed: 06/20/24 23:33> Addendum Narrative: I took over the care from previous shift physician at 2300 on 06/20/2024. See previous notes for complete H & P and ED course. I reviewed all diagnostic test results. My review of the C-spine CT report is no acute cervical fracture. My review of the Head/Brain CT report is negative for acute hemorrhage, mass effect or midline shift. Diagnoses include: Fall from ground level, Forehead laceration. Treatment here included Lidocaine and suture procedure. Based on my best medical judgment, made decision no further evaluation or treatment indicated at this time. Patient understands and agrees to the discharge instructions customized and printed, see below. Discharge instructions from Dr. Lawson: -- Your laceration was repaired with 3 stitches. -- Keep the current dressing intact for 24 hours. -- After 24 hours, change the dressing once daily. -- First remove the dressing gently. If it does not come off easily, run water through it until it comes off easily. -- Then gently wash with soap and water. -- After completely drying, apply antibiotic ointment and new dressing. -- See your doctor or return here in 7 days for suture removal. Total of 3 stitches. -- Seek immediate medical care with fever, spreading redness from the wound, or with any concerns Noah Lawson MD <Noah Lawson MD - Last Filed: 06/20/24 23:44> Addendum Narrative: I took over the care from Marvel Odom NP at 2300 on 06/20/2024. See previous notes for complete H & P and ED course. I reviewed all diagnostic test results. My review of the C-spine CT report is no acute cervical fracture. My review of the Head/Brain CT report is negative for acute hemorrhage, mass effect or midline shift. Good wound care instructions given. Based on my best medical judgment, made decision no further evaluation or treatment indicated at this time. See discharge instructions customized and printed, see below. Discharge instructions from Dr. Lawson: -- Your laceration was repaired with 3 stitches. -- Keep the current dressing intact for 24 hours. -- After 24 hours, change the dressing once daily. -- First remove the dressing gently. If it does not come off easily, run water through it until it comes off easily. -- Then gently wash with soap and water. -- After completely drying, apply antibiotic ointment and new dressing. -- See your doctor or return here in 7 days for suture removal. Total of 3 stitches. -- Seek immediate medical care with fever, spreading redness from the wound, or with any concerns Noah Lawson MD
[2024-06-21 00:28] VITALS: BP 133/70; PULSE 79; RESP 12; O2SAT 99
--- NOTE | 2024-06-21 01:00 | PC.NURSE ---
report called via telephone [facility]
--- NOTE | 2024-06-21 08:18 | PC.NURSE ---
called pt's son amelia at [phone] that pt left shirt in the e.d. if he wants to come and pick it up
== END 2024-06-21 01:02 | disposition home or self-care (01) ==
PROVIDERS: Emergency Provider Emergency Medicine
DX: S01.81XA Laceration without foreign body of other part of head, initial encounter (principal); S19.9XXA Unspecified injury of neck, initial encounter; W18.30XA Fall on same level, unspecified, initial encounter; Y92.122 Bedroom in nursing home as the place of occurrence of the external cause
CPT/HCPCS: 12011; 70450; 72125; 99284

== ENCOUNTER 2024-11-04 10:01 | Emergency (ER) | payer MEDICARE, MEDICAID, SELFPAY ==
[2024-11-04 10:26] VITALS: BMI 20.7
[2024-11-04 10:29] VITALS: BP 132/58; PULSE 69; RESP 18; TEMP 36.5; O2SAT 99
[2024-11-04 11:00] VITALS: BP 132/61; PULSE 74; RESP 16; O2SAT 98
[2024-11-04] MEDS: MIDAZOLAM INJ 1 MG/ML VIAL 2 ML IM (11:12)
--- NOTE | 2024-11-04 11:15 | PC.NURSE ---
Patient lying in gurney quietly, right jaw has obvious dislocation, patient unable to close mouth, tender upon palpation, patient cooperative and responding appropriiately, patient following commands. skin warm dry and pink, Dr. Cortez made aware versed mg im given.
--- NOTE | 2024-11-04 11:28 | EDNOTE_ITS ---
ED General RME/HPI General Chief complaint: General Adult/Misc Complain Stated complaint: DISLOCATED JAW Time Seen by Provider: 11/04/24 10:17 Arrival date/time: 11/04/24 10:01 Limitations: no limitations RME / HPI RME / HPI narrative: 89 year old female with history of dementia, Alzheimer's disease, recurrent jaw dislocations presents to the ED BIB from [facility] for evaluation of jaw dislocation today. Patient reports presentation today is similar to previous jaw dislocations. No other associated symptoms or complaints reported. Related Data Allergies Allergy/AdvReac Type Severity Reaction Status Date / Time No Known Allergies Allergy Verified 04/20/24 15:18 Review of Systems Review of Systems Systems Reviewed: All systems reviewed, normal except as documented Past Medical History Past Medical History NEUROLOGIC: Positive Dementia GASTROINTESTINAL: Positive Gastroesophageal Reflux Disease MUSCULOSKELETAL: Positive Musculoskeletal Disorders and Arthritis HEMATOLOGIC: Positive Anemia PSYCHO/SOCIAL: Positive Anxiety Surgical History SURGICAL: Positive Joint Replacement Social History SMOKING STATUS: Unknown if ever smoked ED Exam Narrative Physical exam: unable to close her mouth perisstently open 3cm, jaw appears out of place General Limitations: Present no limitations General appearance: Present alert Head Head exam: Present atraumatic, normocephalic and normal inspection Eye Eye exam: Present normal appearance, PERRL and EOMI ENT ENT exam: Present normal oropharynx, mucous membranes moist and other (unable to close her mouth that remains persistently open at about 3cm, jaw appears out of place , no bruising, no intra-oral lesions, no strodior, no resp distress) Neck Neck exam: Present normal inspection, full ROM and trachea midline Chest Chest inspection: Present normal inspection and symmetric chest wall rise Respiratory Respiratory exam: Present normal lung sounds bilaterally Cardiovascular Cardiovascular exam: Present regular rate, normal rhythm and normal heart sounds Abdominal Exam Abdominal exam: Present soft Extremities Exam Extremities exam: Present normal inspection and full ROM Neurological Exam Neurological exam: Present alert and other (nop gross FND) Psychiatric Psychiatric exam: Present normal affect and normal mood Skin Skin exam: Present warm, dry, intact and normal color Course Quality Measures none Orders Category Date Time Status Midazolam Inj [Versed Inj] Med 11/04/24 10:59 Discontinued 1 mg IM X1 ONE Vital Signs Vital signs: Vital Signs Temperature 97.7 F 11/04/24 10:29 Pulse Rate 69 11/04/24 10:29 Respiratory Rate 18 11/04/24 10:29 Blood Pressure 132/58 H 11/04/24 10:29 Pulse Oximetry (%) 99 11/04/24 10:29 Oxygen Delivery Method Room Air 11/04/24 10:29 Pulse ox is 99% on room air which is adequate. PROCEDURES: Jaw Reduction Time Out Performed: Yes Pre-Treatment Medications Used: benzodiazepines Technique used: downward anterior traction Reduction successful: Yes Patient Tolerated Procedure: well and no complications Complications: none Additional Comments: Coband wrapped gently around head to secure mandible in placed. The patient was instructed not to open mouth more than enough to use a straw and no solid food until tomorrow. Discharge Plan Plan Patient Disposition: HOME (Self Care) Prescriptions/Referrals Referrals: Rohan May MD [Primary Care Provider] - In 1 week Problem List Clinical Impression: Dislocated jaw Patient/Caregiver Discharge Instructions Education Materials: ED Jaw Dislocation Additional Instructions: Please follow-up with your primary care doctor within 1 to 2 days. Please only eat nonsolid food for the next 1 to 2 days. Do not put your mouth any wider than a straw, avoid yawning. If needed you can loosen up the bandage that we have for comfort however it is important that we keep a support in place to prevent redislocation. Return immediately if you have worsening symptoms or new symptoms of concern Print Language: Albanian Stand Alone Forms: Christiane Award Info., Patient Portal Info Letter MDM Narrative MDM hospital course (for use when minimal MDM required): ICelestina, am scribing for and in the presence of Dr. Cortez. Patient presents with difficulty closing her mouth without any trauma or sick symptoms. VS and exam as listed.Less likely fracture, deep space neck infection, intraoral lesion. Symptoms most consistent with mandible dislocation. Patient provided consent for reduction. Medication for symptom relief provided, then performed reduction as listed below w/o complications. Patient tokerated well. Able to open and close mouth w/o difficulty. Temporary bandage around patient's head/mandible placed. Patient able to open mouth and breathe w/o difficulty. Mandible dislocation reductionL * Patient placed in sitting position. * I placed my thumb on the patient?s cheek, on the mandibular ramus and coronoid process of the dislocated mandible, and applied persistent pressure posteriorly * I placed my fingers behind the angle of the mandible to stabilize the prize jacker. * At the same time on the opposite side, I placed my fingers from my other hand on the angle of the mandible and pulled, applying anterior force * After dislocation was reduced on one, the procedure was repeated on the other side which resulted in reduction of dislocation on both sides. Clinical Information Provided by: patient and EMS [facility] and long-term (I reviewed pmhx and medication list from [facility] ) Meds/Rx considered, not ordered None Labs/Rad/Tests considered, not ordered None Chronic Illness/Social Conditions which may negatively complicate care or outcome(s)-explain: long-term/debilitated EKG EKG not done Labs Labs: none Medication Administration(s) Medication Administration History Discontinued Medications Midazolam HCl (Midazolam Inj 1 Mg/Ml Vial 2 Ml) 1 mg IM X1 ONE Stop: 11/04/24 11:00 Last Admin: 11/04/24 11:12 Dose: 1 mg Documented By: TAURUS See above Diagnosis Differential Diagnosis ED Complaint MDM: See MDM Diagnoses ruled out and/or further discussions: Dislocated jaw
--- NOTE | 2024-11-04 11:33 | PC.NURSE ---
Dr. Cortez and Daria TEMPORARY ADMINISTRATIVE ASSISTANT at bedside to reduce jaw. Patient tolerated well with some pain, however, after procedure, patient falling asleep,vss
[2024-11-04 11:39] VITALS: BP 146/68; PULSE 77; RESP 16; O2SAT 100
[2024-11-04 12:18] VITALS: BP 132/60; PULSE 85; RESP 17; TEMP 37.1; O2SAT 99
--- NOTE | 2024-11-04 12:27 | PC.NURSE ---
Telephone report given to Kathrine, nurse at [facility], per kathrine, she will call to arrange transport for patient to go back to their facility.
[2024-11-04 13:43] VITALS: BP 142/66; PULSE 85; RESP 16; O2SAT 98
== END 2024-11-04 13:54 | disposition home or self-care (01) ==
PROVIDERS: Emergency Provider Emergency Medicine; PCP Hospitalist
DX: S03.03XA Dislocation of jaw, bilateral, initial encounter (principal); X58.XXXA Exposure to other specified factors, initial encounter
CPT/HCPCS: 21480; 99282; J2250